=== PATIENT | male | born 2000 | race African-American/Black ===

== ENCOUNTER 2022-02-03 17:33 | Emergency (ER) | payer OTHER ==
[~2022-02-03] VITALS: Ht 190.5 cm; Wt 140.6 kg
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
[2022-02-03 18:21] LABS: HEMATOCRIT 44 % (40-54); MEAN CORPUSCULAR HEMOGLOBIN 32 pg (25-34); MEAN CORPUSCULAR HGB CONC 35 g/dL (32-36); MEAN CORPUSCULAR VOLUME 92 fL (80-99); MEAN PLATELET VOLUME 10.4 fL (9.0-12.2); PLATELET COUNT 274 10^3/uL (130-400); WHITE BLOOD COUNT 6.6 10^3/uL (4.3-11.0)
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
[2022-02-03 18:31] LABS: CHLORIDE 104 MMOL/L (98-107); POTASSIUM 3.3 MMOL/L (3.6-5.0); SODIUM 140 MMOL/L (135-145)
[2022-02-03 18:32] LABS: ALBUMIN 4.4 GM/DL (3.2-4.5)
[2022-02-03 18:33] LABS: CALCIUM 9.5 MG/DL (8.5-10.1)
[2022-02-03 18:34] LABS: GLUCOSE 91 MG/DL (70-105); TOTAL PROTEIN 7.6 GM/DL (6.4-8.2)
[2022-02-03 18:35] LABS: CARBON DIOXIDE 24 MMOL/L (21-32)
[2022-02-03 18:36] LABS: BILIRUBIN,TOTAL 0.8 MG/DL (0.1-1.0)
[2022-02-03 18:37] LABS: ALKALINE PHOSPHATASE 80 U/L (40-136)
[2022-02-03 18:38] LABS: CREATININE SERUM 1.16 MG/DL (0.60-1.30); GFR ESTIMATED 91
[2022-02-03 18:39] LABS: BILIRUBIN,DIRECT 0.3 MG/DL (0.0-0.3); BILIRUBIN,INDIRECT 0.5 MG/DL; BUN/CREATININE RATIO 9
[2022-02-03 18:41] LABS: ALANINE AMINOTRANSFERASE 34 U/L (0-55)
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
[2022-02-03] MEDS ORDERED: KETOROLAC 30 MG/ML VIAL IVP ONE (19:00)
[2022-02-03 19:05] VITALS: BP 122/62
== END 2022-02-03 19:08 | disposition home or self-care (01) ==
LOC: ER 17:47 → EDBD 17:47 → ER 19:08
DX: S46.812A Strain of other muscles, fascia and tendons at shoulder and upper arm level, left arm, initial encounter (principal); F17.290 Nicotine dependence, other tobacco product, uncomplicated; V49.40XA Driver injured in collision with unspecified motor vehicles in traffic accident, initial encounter
CPT/HCPCS: 36415; 70450; 71260; 72125; 80048; 80076; 80320; 85027; 93041; 99291